=== PATIENT | male | born 1955 | race African-American/Black ===

== ENCOUNTER 2016-06-27 19:58 | Inpatient (IN) | payer OTHER ==
[~2016-06-27] VITALS: Ht 167.6 cm; Wt 68.7 kg
[2016-06-27 20:37] VITALS: BP 95/59; TEMP 100.2
[2016-06-27 20:53] LABS: PLATELET COUNT 199 K/uL (142-355)
[2016-06-27 21:01] LABS: POTASSIUM 4.2 mmol/L (3.6-5.2)
[2016-06-28] VITALS (37 sets, daily range): BP systolic 75–161; BP diastolic 47–96; TEMP 98–101.9; Ht 167.6 cm; Wt 68.7 kg
[2016-06-28 02:58] LABS: POTASSIUM 3.7 mmol/L (3.6-5.2)
[2016-06-28 06:39] LABS: PLATELET COUNT 175 K/uL (142-355)
[2016-06-28 06:54] LABS: POTASSIUM 3.7 mmol/L (3.6-5.2)
[2016-06-28 09:45] LABS: POTASSIUM 3.6 mmol/L (3.6-5.2); SODIUM 133 mmol/L (136-145)
[2016-06-28 16:15] LABS: POTASSIUM 3.8 mmol/L (3.6-5.2); SODIUM 131 mmol/L (136-145)
[2016-06-28 23:06] LABS: POTASSIUM 3.2 mmol/L (3.6-5.2); SODIUM 132 mmol/L (136-145)
[2016-06-29] VITALS (18 sets, daily range): BP systolic 103–139; BP diastolic 59–95; TEMP 97.8–99.2
[2016-06-29 04:35] LABS: PLATELET COUNT 174 K/uL (142-355)
[2016-06-29 05:13] LABS: POTASSIUM 3.3 mmol/L (3.6-5.2); SODIUM 135 mmol/L (136-145)
[2016-06-30 00:04] VITALS: BP 139/88; TEMP 100.8
[2016-06-30 00:55] VITALS: TEMP 100.3
[2016-06-30 04:00] VITALS: BP 123/82; TEMP 98.7
[2016-06-30 05:22] LABS: PLATELET COUNT 176 K/uL (142-355)
[2016-06-30 05:52] LABS: POTASSIUM 3.7 mmol/L (3.6-5.2); SODIUM 130 mmol/L (136-145)
[2016-06-30 08:00] VITALS: BP 144/76; TEMP 98.4
== END 2016-06-30 15:40 | disposition home or self-care (01) | DRG 639 ==
LOC: ED 19:58 → ICU 22:16 → ED 23:51 → MED/SURG 06-29 18:40
PROVIDERS: Emergency Medicine
DX: E11.00 Type 2 diabetes mellitus with hyperosmolarity without nonketotic hyperglycemic-hyperosmolar coma (NKHHC) (principal); J01.00 Acute maxillary sinusitis, unspecified
CPT/HCPCS: 36415; 36600; 80048; 80053; 81000; 81002; 82140; 82150; 82550; 82805; 82962; 83036; 83605; 83690; 83735; 84484; 85027; 87040; 93005; 94760; 96361; 96365; 96372; 96375; 99291; J0696; J1265; J1650; J1815; J3411; J3475; J3490